=== PATIENT | female | born 1950 ===

== ENCOUNTER 2018-11-14 11:52 | Emergency (ER) | payer MEDICARE, MEDICAID ==
[2018-11-14 11:52] VITALS: PULSE 98
[2018-11-14 12:12] VITALS: BP 178/91; TEMP 98.8
[2018-11-14 12:18] VITALS: PULSE 100; RESP 19; O2SAT 100
--- NOTE | 2018-11-14 12:54 | ED PDOC ---
HPI:Nausea, Vomiting, Diarrhea Time Seen by Provider: 11/14/18 12:16 Chief Complaint (Nursing): Abdominal Pain Chief Complaint (Provider): Vomiting History Per: Patient, Time Study Analyst ([id number]) History/Exam Limitations: no limitations Onset/Duration Of Symptoms: Days Current Symptoms Are (Timing): Still Present Context: Food Quality Of Discomfort: Gas Associated Symptoms: denies: Fever, Nausea, Diarrhea Additional Complaint(s): 68 y/o female presents to the ED for an evaluation of vomiting that is bilious and yellow. She states she has been vomiting all night and she ate broccoli, beans meat and milk from which she developed gas. Yesterday, patient had milk and coffee, developing abdominal discomfort. Patient reports she has not been taking her Potassium pill since the past 2 days because of vomiting and dry mouth. Otherwise, she denies fever, diarrhea or nausea. PMD: Dr. Ramiro Sullivan Past Medical History Reviewed: Historical Data, Nursing Documentation, Vital Signs Vital Signs: Last Vital Signs Temp 98.8 F 11/14/18 12:15 Pulse 100 H 11/14/18 12:15 Resp 19 11/14/18 12:15 BP 178/91 H 11/14/18 12:15 Pulse Ox 100 11/14/18 12:15 - Medical History PMH: HTN Denies: Chronic Kidney Disease - Family History Family History: States: Unknown Family Hx - Social History Current smoker - smoking cessation education provided: No Alcohol: None Drugs: Denies - Home Medications Home Medications: Ambulatory Orders Medication Instructions Recorded Cholesterol 11/14/16 Dabigatran [Pradaxa] 150 mg PO BID #60 cap 11/15/16 Digoxin [Lanoxin] 0.25 mg PO DAILY #30 tab 11/15/16 [id number] CD [Cardizem CD] 120 mg PO DAILY #30 c24 11/15/16 - Allergies Allergies/Adverse Reactions: Allergies Allergy/AdvReac Type Severity Reaction Status Date / Time Penicillins Allergy Severe SWELLING Verified 11/14/16 11:17 Review of Systems ROS Statement: Except As Marked, All Systems Reviewed And Found Negative Constitutional: Negative for: Fever, Chills Gastrointestinal: Positive for: Vomiting. Negative for: Nausea, Diarrhea, Constipation Physical Exam - Reviewed Nursing Documentation Reviewed: Yes Vital Signs Reviewed: Yes - Physical Exam Appears: Positive for: Well, Non-toxic, No Acute Distress Head Exam: Positive for: ATRAUMATIC, NORMAL INSPECTION, NORMOCEPHALIC Skin: Positive for: Normal Color, Warm, Dry. Negative for: Rash Eye Exam: Positive for: EOMI, Normal appearance, PERRL Cardiovascular/Chest: Positive for: Regular Rate, Rhythm, Tachycardia Respiratory: Positive for: Normal Breath Sounds. Negative for: Decreased Breath Sounds, Wheezing, Respiratory Distress Gastrointestinal/Abdominal: Positive for: Normal Exam, Bowel Sounds (active in all 4 quadrants), Soft. Negative for: Tenderness Neurologic/Psych: Positive for: Alert, Oriented (x3). Negative for: Motor/Sensory Deficits - Laboratory Results Result Diagrams: 11/14/18 13:19 11/14/18 13:19 - ECG O2 Sat by Pulse Oximetry: 100 (RA) Pulse Ox Interpretation: Normal Medical Decision Making Medical Decision Making: Time: 1319 Plan: CMP CBC w/ Differential Lipase Troponin Urinalysis ABD Pelvis PO & IV Contrast CT Omnipaque 50ml Reevaluation 1643 PROCEDURE: CT Abdomen and Pelvis. HISTORY: Rule out acute abdomen COMPARISON: None. TECHNIQUE: Contiguous axial images of the abdomen an pelvis performed following oral and intravenous injection of approximately 95 cc Omnipaque 300 contrast material. Reformats generated. Radiation dose: Total exam DLP = 518.9 mGy-cm. This CT exam was performed using one or more of the following dose reduction techniques: Automated exposure control, adjustment of the mA and/or kV according to patient size, and/or use of iterative reconstruction technique. FINDINGS: LOWER THORAX: The heart is enlarged. No significant pericardial effusion. There is a small hiatal hernia with oral contrast material seen within the lumen of the distal esophagus consistent with reflux. Slight wall thickening of the distal esophagus likely due to protrusion gastric mucosa however esophagitis or other intrinsic/invasive wall lesion not completely excluded. The Mild passive/dependent type atelectasis both posterior lower lung ware. No focal consolidation. No evidence of effusion or basilar pneumothorax. Minimal linear scarring seen in the left lingular region.. LIVER: Liver exhibits relatively normal size measuring approximately 17.8 cm in CC d imension. Mild diffuse fatty hepatic infiltration. The no obvious hepatic mass collection or calcification. However there does appear to be some minimal central intrahepatic biliary ductal dilatation. Portal and splenic veins are opacified. GALLBLADDER AND BILE DUCTS: Gallbladder appears incompletely distended. No definitive intraluminal gallbladder calculi. Dilatation of the common bile duct. PANCREAS: Pancreas appears slightly atrophic and fatty replaced. The the. SPLEEN: Unremarkable. No splenomegaly. ADRENALS: No adrenal lesions KIDNEYS AND URETERS: . Kidneys demonstrate symmetric nephrograms. No evidence of nephrolithiasis or hydronephrosis.. There is a small approximately 12.8 x 7.0 mm elliptical shaped low-attenuation lesion anterolateral cortex mid pole left kidney that may represent small hyperdense cyst with Hounsfield units in the low 20s.. There may be some localized cortical scarring lateral upper-mid pole left kidney. Small amount of localized perinephric fluid in the cleft cannot be completely excluded. Suspect small scarring change posterolateral cortex lower pole right kidney.. Probable small cyst posterior midpole right kidney. BLADDER: Urinary bladder is incompletely distended which may in part account for slight thick-walled appearance. Correlation with urinalysis to exclude cystitis.. REPRODUCTIVE: The uterus is bulky and slightly lobular in contour; rule out uterine fibroids... APPENDIX: Normal appendix. BOWEL: Evaluation of the bowel is somewhat limited due to incomplete opacification. The stomach is distended with oral contrast material and air.. Visualized loops of small bowel exhibit normal contour and caliber. No evidence of acute mechanical small bowel obstruction the. There is a large amount of stool seen throughout the colon, particularly on the cecum, at ascending, transverse and distal sigmoid colon and rectum consistent with consistent with mild constipation. Multiple colonic diverticula are also present. No definitive radiographic evidence of acute diverticulitis. Clinical correlation recommended.. PERITONEUM: Unremarkable. No fluid collection. No free air. LYMPH NODES: Unremarkable. No enlarged lymph nodes. VASCULATURE: Unremarkable. No aortic aneurysm. No aortic atherosclerotic calcification or mural plaque present. BONES: Mild multilevel degenerative spondylosis of the lower thoracic and lumbar spine.. OTHER FINDINGS: None. IMPRESSION: Mild fatty hepatic infiltration. Mild central intrahepatic biliary ductal dilatation with dilatation of the common bile duct. No definitive evidence of cholelithiasis. Consider follow-up MRCP. Findings consistent with constipation.. The probable small hyperdense left renal cyst.. Suspect bilateral cortical scarring changes both kidneys. Consider follow-up nonemergent ultrasound of both kidneys Slightly bulky and lobular appearing uterus; rule out uterine fibroids. Scribe Attestation: Documented by Chris Morgan, acting as a scribe for Don Deleon PA-C. Provider Scribe Attestation: All medical record entries made by the Scribe were at my direction and personally dictated by me. I have reviewed the chart and agree that the record a ccurately reflects my personal performance of the history, physical exam, medical decision making, and the department course for this patient. I have also personally directed, reviewed, and agree with the discharge instructions and disposition. Disposition - Clinical Impression Clinical Impression: Abdominal discomfort, Abdominal pain in female - Disposition Referrals: Kevin Waddell MD [Staff Provider] - Antwan Waddell MD [Medical Doctor] - Disposition: Routine/Home Disposition Time: 17:06 Condition: STABLE Additional Instructions: Findings Include: Mild fatty hepatic infiltration. Mild central intrahepatic biliary ductal dilatation with dilatation of the common bile duct. No definitive evidence of cholelithiasis. Consider follow-up MRCP. A probable small hyperdense left renal cyst.. Suspect bilateral cortical scarring changes both kidneys. Consider follow-up nonemergent ultrasound of both kidneys Slightly bulky and lobular appearing uterus; rule out uterine fibroids. Pt should follow up with [facility] as referred above for MRCP, the patient has indicated that she has a urologist and will follow up with him/her for the renal description above. Pt should follow up with PMD for uterine fibroiid potential Instructions: Nausea and Vomiting, Adult, Acute Abdomen (Belly Pain), Adult (DC) Forms: [employer] (Sami)
[2018-11-14] MEDS ORDERED: Iohexol 240 (50 ml) PO ONE (13:28)
[2018-11-14 13:45] LABS: ALB/GLOB RATIO 1.2 (1.0-2.1); ALBUMIN 4.8 g/dL (3.5-5.0); ALT/SGPT 30 U/L (9-52); AST/SGOT 24 U/L (14-36); BLOOD UREA NITROGEN 16 mg/dl (7-17); CALCIUM 10.1 mg/dL (8.4-10.2); GFR NON-AFRICAN AMERICAN > 60; LIPASE 42 U/L (23-300)
[2018-11-14 13:52] LABS: BASO % 0.2 % (0.0-2.0); HEMOGLOBIN 13.6 g/dL (12.0-16.0); LYMPH # 0.8 K/uL (1.0-4.3); LYMPH % 7.1 % (20.0-40.0); MEAN CELL VOLUME 92.7 fl (81.0-99.0); MEAN CORPUSCULAR HEMOGLOBIN 30.9 pg (27.0-31.0); MEAN CORPUSCULAR HGB CONC 33.3 g/dL (33.0-37.0); MEAN PLATELET VOLUME 8.2 fl (7.2-11.7); MONO # 0.2 K/uL (0.0-0.8); MONO % 2.2 % (0.0-10.0); NEUT # 9.7 K/uL (1.8-7.0); NEUT % 90.5 % (50.0-75.0); NRBC % 0.3 % (0.0-0.0); PLATELET COUNT 307 K/uL (130-400); RBC 4.42 Mil/uL (3.80-5.20); RED CELL DISTRIBUTION WIDTH 14.4 % (11.5-14.5); WHITE BLOOD COUNT 10.7 K/uL (4.8-10.8)
[2018-11-14 14:33] LABS: SQUAMOUS EPITHIAL 1 /hpf (0-5); URINE BILIRUBIN NEGATIVE (NEGATIVE); URINE BLOOD LARGE (NEGATIVE); URINE CLARITY SLIGHTY-CLOUDY (Clear); URINE COLOR YELLOW (YELLOW); URINE GLUCOSE (UA) NEG (NEGATIVE); URINE LEUKOCYTE ESTERASE NEG Leu/uL (Negative); URINE PROTEIN 100 mg/dL (NEGATIVE); URINE UROBILINOGEN 0.2-1.0 mg/dL (0.2-1.0)
[2018-11-14 14:57] LABS: LYMPHOCYTE 6 % (20-50); MONOCYTE 1 % (0-10); NEUTROPHIL 93 % (42-75); PLATELET ESTIMATE NORMAL (NORMAL); TOTAL CELLS COUNTED 100
[2018-11-14] MEDS ORDERED: Iohexol 300 100 ML IJ ONE (15:51)
[2018-11-14] MEDS ORDERED: Sodium Chloride 0.9% 50 ML IV ONE (15:51)
--- NOTE | 2018-11-14 16:47 | CT ---
Date of service: 11/14/2018 PROCEDURE: CT Abdomen and Pelvis. HISTORY: Rule out acute abdomen COMPARISON: None. TECHNIQUE: Contiguous axial images of the abdomen an pelvis performed following oral and intravenous injection of approximately 95 cc Omnipaque 300 contrast material. Reformats generated. Radiation dose: Total exam DLP = 518.9 mGy-cm. This CT exam was performed using one or more of the following dose reduction techniques: Automated exposure control, adjustment of the mA and/or kV according to patient size, and/or use of iterative reconstruction technique. FINDINGS: LOWER THORAX: The heart is enlarged. No significant pericardial effusion. There is a small hiatal hernia with oral contrast material seen within the lumen of the distal esophagus consistent with reflux. Slight wall thickening of the distal esophagus likely due to protrusion gastric mucosa however esophagitis or other intrinsic/invasive wall lesion not completely excluded. The Mild passive/dependent type atelectasis both posterior lower lung ware. No focal consolidation. No evidence of effusion or basilar pneumothorax. Minimal linear scarring seen in the left lingular region.. LIVER: Liver exhibits relatively normal size measuring approximately 17.8 cm in CC dimension. Mild diffuse fatty hepatic infiltration. The no obvious hepatic mass collection or calcification. However there does appear to be some minimal central intrahepatic biliary ductal dilatation. Portal and splenic veins are opacified. GALLBLADDER AND BILE DUCTS: Gallbladder appears incompletely distended. No definitive intraluminal gallbladder calculi. Dilatation of the common bile duct. PANCREAS: Pancreas appears slightly atrophic and fatty replaced. The the. SPLEEN: Unremarkable. No splenomegaly. ADRENALS: No adrenal lesions KIDNEYS AND URETERS: . Kidneys demonstrate symmetric nephrograms. No evidence of nephrolithiasis or hydronephrosis.. There is a small approximately 12.8 x 7.0 mm elliptical shaped low-attenuation lesion anterolateral cortex mid pole left kidney that may represent small hyperdense cyst with Hounsfield units in the low 20s.. There may be some localized cortical scarring lateral upper-mid pole left kidney. Small amount of localized perinephric fluid in the cleft cannot be completely excluded. Suspect small scarring change posterolateral cortex lower pole right kidney.. Probable small cyst posterior midpole right kidney. BLADDER: Urinary bladder is incompletely distended which may in part account for slight thick-walled appearance. Correlation with urinalysis to exclude cystitis.. REPRODUCTIVE: The uterus is bulky and slightly lobular in contour; rule out uterine fibroids... APPENDIX: Normal appendix. BOWEL: Evaluation of the bowel is somewhat limited due to incomplete opacification. The stomach is distended with oral contrast material and air.. Visualized loops of small bowel exhibit normal contour and caliber. No evidence of acute mechanical small bowel obstruction the. There is a large amount of stool seen throughout the colon, particularly on the cecum, at ascending, transverse and distal sigmoid colon and rectum consistent with consistent with mild constipation. Multiple colonic diverticula are also present. No definitive radiographic evidence of acute diverticulitis. Clinical correlation recommended.. PERITONEUM: Unremarkable. No fluid collection. No free air. LYMPH NODES: Unremarkable. No enlarged lymph nodes. VASCULATURE: Unremarkable. No aortic aneurysm. No aortic atherosclerotic calcification or mural plaque present. BONES: Mild multilevel degenerative spondylosis of the lower thoracic and lumbar spine.. OTHER FINDINGS: None. IMPRESSION: Mild fatty hepatic infiltration. Mild central intrahepatic biliary ductal dilatation with dilatation of the common bile duct. No definitive evidence of cholelithiasis. Consider follow-up MRCP. Findings consistent with constipation.. The probable small hyperdense left renal cyst.. Suspect bilateral cortical scarring changes both kidneys. Consider follow-up nonemergent ultrasound of both kidneys Slightly bulky and lobular appearing uterus; rule out uterine fibroids.
== END 2018-11-14 17:18 | disposition home or self-care (01) ==
LOC: H.ER 11:52
DX: R10.9 Unspecified abdominal pain (principal)
CPT/HCPCS: 74177; 80053; 81003; 83690; 84484; 85025; 99284; Q9967